=== PATIENT | female | born 1945 | race Caucasian/White ===

== ENCOUNTER 2019-01-27 15:17 | Emergency (ER) | payer OTHER, BC ==
[2019-01-27 16:07] LABS: BASO % 0.7 % (0-2.0); EOS % 0.8 % (0-4.5); HEMATOCRIT 40.2 % (32.4-45.2); HEMOGLOBIN 13.8 GM/dL (10.7-15.3); LYMPH % 22.9 % (8-40); MCH 30.2 pg (25.7-33.7); MCHC 34.4 g/dl (32.0-36.0); MEAN CELL VOLUME 87.7 fl (80-96); MEAN PLT VOLUME 7.9 fl (7.5-11.1); MONO % 7.2 % (3.8-10.2); NEUT % 68.4 % (42.8-82.8); PLATELET COUNT 285 K/MM3 (134-434); RBC 4.58 M/mm3 (3.60-5.2); RDW 13.9 % (11.6-15.6); WHITE BLOOD COUNT 5.6 K/mm3 (4.0-10.0)
--- NOTE | 2019-01-27 16:15 | PDOC ---
History of Present Illness - General Chief Complaint: Chest Pain Stated Complaint: CHEST PAIN Time Seen by Provider: 01/27/19 15:41 History Source: Patient Exam Limitations: No Limitations - History of Present Illness Initial Comments: 01/27/19 16:07 Pt is a 73yo F with PMH of HTN, Anxiety presenting to ED from Urgent Care. Pt states that earlier this morning she started feeling anxious, took her BP and saw that it was 170s/100s and went to urgent care. Pt states she felt slightly short of breath and had chest tightness. She has had symptoms like this before and wanted to make sure everything was ok. She went to urgent care, got an EKG and was told to come to the ED. Right now pt states she is feeling fine, denies chest pain/tightness, sob, cough, hemoptysis, leg swelling, recent travel, recent surgery, headache, changes in vision, neck pain, back pain, syncope, lightheadedness. Was taking Xanax for anxiety but her PMD wants to place her on antidepressants. Denies cardiac history, blood clot history. PMD: Has Cards: in [place] PMH: see hpi PSH: Meds: amlodipine Allergies: nkda Social: denies Past History - Past Medical History Allergies/Adverse Reactions: Allergies Allergy/AdvReac Type Severity Reaction Status Date / Time No Known Allergies Allergy Verified 01/27/19 15:43 Home Medications: Ambulatory Orders Unobtainable 01/27/19 COPD: No HTN: Yes Psychiatric Problems: Yes (anxiety) - Suicide/Smoking/Psychosocial Hx Smoking History: Unknown if ever smoked Have you smoked in the past 12 months: No Information on smoking cessation initiated: No Hx Alcohol Use: No Drug/Substance Use Hx: No Review of Systems - Review of Systems Constitutional: No: Chills, Fever, Weakness HEENTM: No: Symptoms Reported Respiratory: Yes: See HPI Cardiac (ROS): Yes: Palpitations, Chest Tightness. No: Chest Pain, Lightheadedness ABD/GI: No: Symptoms Reported : No: Symptoms Reported Musculoskeletal: No: Symptoms Reported Integumentary: No: Symptoms Reported Neurological: No: Symptoms reported *Physical Exam - Vital Signs Last Vital Signs Temp Pulse Resp BP Pulse Ox 97.9 F 64 18 156/109 H 100 01/27/19 15:43 01/27/19 15:43 01/27/19 15:43 01/27/19 15:43 01/27/19 15:43 - Physical Exam General Appearance: Yes: Nourished, Appropriately Dressed. No: Severe Distress HEENT: positive: EOMI, ALICIA, Normal ENT Inspection Neck: positive: Trachea midline, Supple. negative: Lymphadenopathy (R), Lymphadenopathy (L) Respiratory/Chest: positive: Lungs Clear, Normal Breath Sounds. negative: Crackles, Rales, Wheezing Cardiovascular: positive: Regular Rhythm, Regular Rate, S1, S2. negative: Edema , JVD, Murmur Vascular Pulses: Carotid (R): 2+, Carotid (L): 2+, Dorsalis-Pedis (R): 2+, Doralis-Pedis (L): 2+ Gastrointestinal/Abdominal: positive: Normal Bowel Sounds, Soft. negative: Tender Musculoskeletal: negative: CVA Tenderness Extremity: positive: Normal Capillary Refill. negative: Pedal Edema, Swelling Integumentary: positive: Normal Color, Dry, Warm Neurologic: positive: cotton expert II-XII NML intact, Fully Oriented, Alert, Normal Mood/ Affect, Normal Response, Motor Strength 5/5 Moderate Sedation - Procedure Monitoring Vital Signs: Procedure Monitoring Vital Signs Temperature 97.9 F 01/27/19 15:43 Pulse Rate 64 01/27/19 15:43 Respiratory Rate 18 01/27/19 15:43 Blood Pressure 156/109 H 01/27/19 15:43 O2 Sat by Pulse Oximetry (%) 100 01/27/19 15:43 ED Treatment Course - LABORATORY CBC & Chemistry Diagram: 01/27/19 15:58 01/27/19 15:58 - RADIOLOGY Radiology Studies Ordered: Category Date Time Status CHEST X-RAY PORTABLE* [RAD] Stat Radiology 01/27/19 15:44 Ordered Medical Decision Making - Medical Decision Making 01/27/19 16:14 Pt is a 73yo F with PMH of HTN, Anxiety presenting to ED from Urgent Care. Pt states that earlier this morning she started feeling anxious, took her BP and saw that it was 170s/100s and went to urgent care. Pt states she felt slightly short of breath and had chest tightness. She has had symptoms like this before and wanted to make sure everything was ok. She went to urgent care, got an EKG and was told to come to the ED. Right now pt states she is feeling fine, denies chest pain/tightness, sob, cough, hemoptysis, leg swelling, recent travel, recent surgery, headache, changes in vision, neck pain, back pain, syncope, lightheadedness. Vitals: slight htn PE: benign ddx includes but not limited to acs, pe, pna, ptx, dissection, effusions -cbc, cmp, cardiac profile, coags -cxr, ekg Pt not having active complaints and refusing CXR. 01/27/19 17:30 Lab wnl. Does not remember if she took bp meds this AM or not but is refusing dose here in ED. pt agreeing to xray now. States that she does not have pain, feels palpitations but pulse is normal. EKG- nsr. no jd or depressions, narrow QRS, normal QTc CXR- no infiltrate or consolidation, R hilum fullness. pt is hemodynamically stable, capable of making decisions, has pmd and cardiology f/u. will dc home. given return precautions *DC/Admit/Observation/Transfer Diagnosis at time of Disposition: High blood pressure Qualifiers: Hypertension type: unspecified Qualified Code(s): I10 - Essential (primary) hypertension - Discharge Dispostion Disposition: HOME Condition at time of disposition: Good Decision to Admit order: No - Referrals - Patient Instructions Printed Discharge Instructions: DI for High Blood Pressure Additional Instructions: You were seen in the emergency room today for high blood pressure, feelings of palpitations The blood work was normal. Please take your blood pressure medications at the same time everyday. Your chest X-ray show some fullness in the hilar area. The meaning of this finding is unclear, and requires further work up. Please take the provided report to your primary doctor for follow up on this finding. We recommend making an appointment with your doctor and your registered pharmacist within 1-3 days. Come back to the emergency room if you have chest pain, feel short of breath, you have headache, you start seeing spots or stars, you pass out or if any new or concerning symptoms develop. Thank you - Post Discharge Activity
[2019-01-27 16:27] VITALS: TEMP 97.9; BMI 24.0
[2019-01-27 17:01] LABS: ALBUMIN 3.9 g/dl (3.4-5.0); ALK PHOS 77 U/L (45-117); ANION GAP 9 MMOL/L (8-16); BILIRUBIN,TOTAL 0.4 mg/dL (0.2-1); BLOOD UREA NITROGEN 11 mg/dL (7-18); CALCIUM 8.9 mg/dL (8.5-10.1); CHLORIDE 105 mmol/L (98-107); CO2 25 mmol/L (21-32); CREATININE 0.6 mg/dL (0.55-1.3); GLUCOSE,RANDOM 88 mg/dL (74-106); POTASSIUM 3.8 mmol/L (3.5-5.1); SGOT/AST 17 U/L (15-37); SGPT/ALT 25 U/L (13-61); SODIUM 139 mmol/L (136-145); TOT PROT 7.1 g/dl (6.4-8.2)
--- NOTE | 2019-01-27 17:03 | PDOC ---
Attending Attestation - Resident Resident Name: Jackie Montenegro - ED Attending Attestation I have performed the following: I have examined & evaluated the patient, The case was reviewed & discussed with the resident, I agree w/resident's findings & plan, Exceptions are as noted - HPI HPI: 01/27/19 17:02 73yo F hx HTN, anxiety presents to the ED from urgent care due to concern for elevated blood pressure. Per the patient she woke up this morning and was feeling shaky and anxious. She states she began to experience palpitations and could feel her heart racing fast. She checked her pulse using a machine at home and found it to be normal in the 70s. She also checked her blood pressure and found it to be elevated to 180/100 which prompted her to go to urgent care for evaluation. While at urgent care patient had an EKG checked and there was concern for EKG changes prompting them to transfer her to the emergency department. Patient previously reported chest pressure and shortness of breath to triage nurse, however on further questioning describes her chest pressure as feeling like her heart was racing. She adamantly denies that she had any chest pain or pressure today. Denies any shortness of breath. Denies any fevers or chills or coughing. Patient follows closely with her primary care doctor and states her blood pressure is usually normal. She states she did not take her blood pressure medication today. States she takes amlodipine only, does not remember the dose. She denies focal weakness/numbness. Denies headache. Denies abd pain, LE edema, calf ttp. Denies stiff neck, abd pain, rash. - Physicial Exam PE: 01/27/19 18:00 GENERAL: Awake, alert, and fully oriented, in no acute distress HEAD: No signs of trauma EYES: PERRLA, EOMI, sclera anicteric, conjunctiva clear ENT: Nares patent, oropharynx clear without exudates. Moist mucosa NECK: Normal ROM, supple, no lymphadenopathy, JVD, or masses LUNGS: Breath sounds equal, clear to auscultation bilaterally. No wheezes, and no crackles HEART: Regular rate and rhythm, normal S1 and S2, no murmurs, rubs or gallops ABDOMEN: Soft, nontender, normoactive bowel sounds. No guarding, no rebound. No masses EXTREMITIES: Normal range of motion, no edema. No cords, erythema, or tenderness NEUROLOGICAL: Normal speech, cranial nerves intact, equal strength and sensation b/l SKIN: Warm, Dry, normal turgor, no rashes or lesions noted. - Medical Decision Making 01/27/19 18:04 73yo F hx HTN, anxiety presents to the ED with elevated BP and palpitations. BP elevated here to 184/84 on my exam, but pt has not taken her amlodipine today Offered to give pt her home dose amlodipine, but she prefers to take it at home EKG with no changes compared to previous EKGs from [facility] Labs including trop neg Pt feels well, denies any symptoms here in the ED. Pt with no events on tele CXR with some hilar fullness, informed pt who will take report to her PMD for further w/u Pt clinically stable for DC home I discussed the physical exam findings, ancillary test results and final diagnoses with the patient. I answered all of the patient's questions. The patient was satisfied with the care received and felt comfortable with the discharge plan and treatment plan. The patient will call their primary care physician within 24 hours to arrange follow-up and will return to the Emergency Department with any new, persistent or worsening symptoms. Heart Score/ECG Review #1 01/27/19 18:01 Twelve-lead EKG was performed and reviewed by me. Sinus violet, rate 59. Normal axis and intervals. No CLAYTON. Isolated TWI lead III. EKGs from [facility] earlier today as well as from 12/19/17 reviewed. No significant changes.
[2019-01-27 17:04] LABS: MAGNESIUM 2.2 mg/dL (1.8-2.4)
[2019-01-27 17:19] LABS: ACTIVATED PTT 27.8 SECONDS (25.2-36.5)
[2019-01-27 17:22] VITALS: BP 180/84; PULSE 66
[2019-01-27 17:24] LABS: INR 1.1 (0.82-1.09); PROTHROMBIN TIME (PATIENT) 12.3 SEC (10.2-13.0)
--- NOTE | 2019-01-28 23:51 | EKG ---
Test Reason : Blood Pressure : / mmHG Vent. Rate : 059 BPM Atrial Rate : 059 BPM P-R Int : 198 ms QRS Dur : 066 ms QT Int : 420 ms P-R-T Axes : 068 029 028 degrees QTc Int : 415 ms SINUS BRADYCARDIA ANTEROSEPTAL INFARCT , AGE UNDETERMINED ABNORMAL ECG NO PREVIOUS ECGS AVAILABLE Confirmed by ODIN HOLLAND MD ([id number]) on 01/28/2019 11:51:27 PM Referred By: Confirmed By:ODIN HOLLAND MD
== END 2019-01-27 18:34 | disposition home or self-care (01) ==
LOC: JER 15:17
DX: I10 Essential (primary) hypertension (principal); F41.9 Anxiety disorder, unspecified
CPT/HCPCS: 36415; 71045-TC-FY; 80053; 82550; 83735; 84484; 85025; 85610; 85730; 93005; 93010; 99285-25